=== PATIENT | female | born 1995 ===

== ENCOUNTER 2018-02-23 03:04 | Emergency (ER) | payer SELFPAY ==
[2018-02-23] MEDS ORDERED: Ondansetron PF 4 MG/2 ML Vial ONE ×2 (03:29)
[2018-02-23 03:34] LABS: #Basophils 0.1 thou/uL (0.0-0.2); #Eosinphils 0.2 thou/uL (0.0-0.7); #Lymphocytes 1.9 thou/uL (1.20-3.40); #Monocytes 0.6 thou/uL (0.11-0.59); #Neutrophils 4.9 thou/uL (1.40-6.50); %Eosinophils 2.4 % (0.0-10.0); %Lymphocytes 24.5 % (21.0-51.0); %Monocytes 8.2 % (0.0-10.0); %Neutrophils 63.9 % (42.0-75.0); Hemoglobin 13.1 g/dL (12.0-16.0); Mean Corpuscular HGB CONC 33.1 g/dL (32.0-36.0); Mean Corpuscular Hemoglobin 30.8 pg (27.0-31.0); Mean Corpuscular Volume 93.3 fL (78.0-98.0); Mean Platelet Volume 8.6 fL (7.4-10.4); Platelet Count 178 thou/uL (130-400); Red Blood Cell (RBC) Count 4.24 mill/uL (4.20-5.40); White Blood Cell (WBC) Count 7.7 thou/uL (4.8-10.8)
[2018-02-23 03:52] LABS: Alcohol 313 mg/dL (Less than 10); Anion Gap 11 mmol/L (10-20); BUN (Urea Nitrogen) 10 mg/dL (7.0-18.7); Calc. Creatinine Clearance 0 mL/min (70-130); Carbon Dioxide 27 mmol/L (22-29); Chloride 108 mmol/L (98-107); Estimated GFR-MDRD Greater than 90; Glucose 86 mg/dL (70-105); Potassium 3.4 mmol/L (3.5-5.1); Sodium 143 mmol/L (136-145)
--- NOTE | 2018-02-23 08:52 | CT ---
PRELIMINARY REPORT/[facility]/EMERGENTY AFTER-HOURS PROCEDURE CT Cervical Spine Without Intravenous Contrast EXAM DATE/TIME: 02/23/2018 3:29 AM CLINICAL HISTORY: 23 years old, female; Injury or trauma; Fall; Initial encounter; Blunt trauma; Patient HX: Er8, no pr iors, additional history obtained from ems, f21 presents to the ed via ems S/P falling in [place] and hitting her head. lodging facilities attendant told ems PT fell and hit her head twice. Friend reports PT has been drinking since 2300. PT is responsive to painful stimulus. TECHNIQUE: Axial computed tomography images of the cervical spine without intravenous contrast. COMPARISON: No relevant prior studies available. FINDINGS: Vertebrae: No acute cervical spine fracture is demonstrated. Discs/Spinal canal/Neural foramina: The vertebral foramen are grossly intact. No spinal canal stenosi s or neural foraminal narrowing. Soft tissues: Unremarkable. Lungs: Lung apices are normal. IMPRESSION: No acute cervical spine fracture is demonstrated. Thank you for allowing us to participate in the care of your patient. Dictated and Authenticated by: Moses Clark MD 02/23/2018 3:46 AM Central Time ([place] & [place]) FINAL REPORT CT HEAD NONCONTRAST PERFORMED ON AN EMERGENCY BASIS: Date: 02/23/18 Time: 0331 hours HISTORY: Fall. Head injury. FINDINGS/IMPRESSION: Findings agree with the preliminary report by Sally. No acute intracranial abnormalities are demonstra ed. POS: [facility]
--- NOTE | 2018-02-23 09:07 | CT ---
PRELIMINARY REPORT/[facility]/EMERGENTY AFTER-HOURS PROCEDURE CT Head Without Intravenous Contrast EXAM DATE/TIME: 02/23/2018 3:29 AM CLINICAL HISTORY: 23 years old, female; Injury or trauma; Fall; Initial encounter; Blunt trauma; Patient HX: Er8, no pr iors, additional history obtained from ems, f23 presents to the ed via ems S/P falling in [place] and hitting her head. drying room attendant told ems PT fell and hit her head twice. Friend reports PT has been drinking since 2300. PT is responsive to painful stimulus. TECHNIQUE: Axial computed tomography images of the head/brain without intravenous contrast. COMPARISON: No relevant prior studies available. FINDINGS: Brain: Normal. No hemorrhage. No significant white matter disease. No edema. Ventricles: Normal. No ventriculomegaly. Bones/joints: Normal. No acute fracture. Sinuses: Normal as visualized. No acute sinusitis. Mastoid air cells: Normal as visualized. No mastoid effusion. Soft tissues: Normal. IMPRESSION: No acute intracranial hemorrhage. Thank you for allowing us to participate in the care of your patient. Dictated and Authenticated by: Moses Clark MD 02/23/2018 3:48 AM Central Time ([place] & [place]) FINAL REPORT CT CERVICAL SPINE NONCONTRAST: DATE: 02/23/2018. TIME: Performed on an emergency basis at 0332 hours. HISTORY: Cough. Neck injury. FINDINGS: Agree with the preliminary report by Dr. Clark from [facility]. Reversal of the normal lordo tic curvature. No acute osseous abnormalities are demonstrated. POS: [facility]
== END 2018-02-23 04:48 | disposition home or self-care (01) ==
LOC: ERS 03:04
DX: S09.90XA Unspecified injury of head, initial encounter (principal); F10.129 Alcohol abuse with intoxication, unspecified; W18.30XA Fall on same level, unspecified, initial encounter
CPT/HCPCS: 36415; 70450; 72125; 80048; 80307; 85025; 96361; 96374; J2405